=== PATIENT | female | born 1985 | race Caucasian/White ===

== ENCOUNTER 2016-11-27 20:21 | Emergency (ER) | payer OTHER ==
[2016-11-27 20:30] VITALS: BP 128/90; PULSE 68; TEMP 97.5; BMI 34.7
--- NOTE | 2016-11-27 22:30 | PDOC ---
History of Present Illness - General History Source: Patient Exam Limitations: No Limitations - History of Present Illness Initial Comments: 11/27/16 22:32 The patient is a 30 year old female with no significant past medical history who presents to the ED with 6 days of dysuria, hematuria, urgency, and frequency. She also reports some mild back pain. The patient denies fever, chills, cough, SOB, chest pain, and palpitations. The patient denies abdominal pain, nausea, vomiting, and diarrhea. Allergies: NKDA Social History: No alcohol, tobacco, or drug use reported. Past Surgical History: None reported PCP: Dr. Myron Downey <Pattie Kraus - Last Filed: 11/27/16 22:32> - General History Source: Patient <ChristopherAdrien romero - Last Filed: 11/27/16 23:04> - General Chief Complaint: Urinary Problem Stated Complaint: URINARY PROBLEM Time Seen by Provider: 11/27/16 21:48 Past History <Pattie Kraus - Last Filed: 11/27/16 22:32> - Past Medical History Other medical history: denies - Immunization History Immunization Up to Date: Yes - Psycho/Social/Smoking Cessation Hx Anxiety: No Suicidal Ideation: No Smoking Status: No Smoking History: Never smoked Have you smoked in the past 12 months: No Number of Cigarettes Smoked Daily: 0 Hx Alcohol Use: No Drug/Substance Use Hx: No Substance Use Type: None <Adrien Peñaloza - Last Filed: 11/27/16 23:04> - Past Medical History Allergies/Adverse Reactions: Allergies Allergy/AdvReac Type Severity Reaction Status Date / Time No Known Allergies Allergy Verified 11/27/16 20:28 Home Medications: Ambulatory Orders No Home Medications 0 dose .ROUTE UTDICT 05/07/13 Ibuprofen 800 mg PO TID #30 tablet 11/27/16 Phenazopyridine HCl [Pyridium -] 100 mg PO PC #6 tablet 11/27/16 Sulfamethoxazole/Trimethoprim [Bactrim *Ds*] 1 tab PO BID #20 tablet 11/27/16 Review of Systems - Review of Systems Able to Perform ROS?: Yes Comments:: 11/27/16 22:32 CONSTITUTIONAL: Absent: fever, no chills, no fatigue EYES: Absent: visual changes ENT: Absent: ear pain, no sore throat CARDIOVASCULAR: Absent: chest pain, no palpitations RESPIRATORY: Absent: cough, no SOB GI: Absent: abdominal pain, no nausea, no vomiting, no constipation, no diarrhea GENITOURINARY: +dysuria, urgency, frequency, hematuria MUSKULOSKELETAL: +back pain Absent: no arthralgia, no myalgia SKIN: Absent: rash NEURO: Absent: headache <Pattie Kraus - Last Filed: 11/27/16 22:32> *Physical Exam - Vital Signs Last Vital Signs Temp Pulse Resp BP Pulse Ox 97.5 F L 68 18 128/90 99 11/27/16 20:28 11/27/16 20:28 11/27/16 20:28 11/27/16 20:28 11/27/16 20:28 - Physical Exam Comments: 11/27/16 22:33 GENERAL: Well-appearing, well-nourished. No apparent distress. HEENT: Normocephalic, atraumatic. PERRL, EOM intact. CARDIOVASCULAR: Normal S1, S2. Regular rate and rhythm. PULMONARY: Clear to auscultation bilaterally. ABDOMEN: Soft, non-distended, suprapubic tenderness. MUSCULOSKELETAL Negative CVA tenderness EXTREMITIES: Normal ROM in all four extremities. No gross deformities. SKIN: Warm, dry. No rash NEUROLOGICAL: No focal neurological deficits. <Pattie Kraus - Last Filed: 11/27/16 22:32> - Vital Signs Last Vital Signs Temp Pulse Resp BP Pulse Ox 97.5 F L 68 18 128/90 99 11/27/16 20:28 11/27/16 20:28 11/27/16 20:28 11/27/16 20:28 11/27/16 20:28 <Adrien Peñaloza - Last Filed: 11/27/16 23:04> Medical Decision Making - Medical Decision Making 11/27/16 23:04 Dr. Peñaloza: The scribe's documentation has been prepared under my direction and personally reviewed by me in its entirery. I confirm that the note above accurately reflects all work, treatment, procedures, and medical decision making performed by me. Patient found to have urinary tract infection. Patient will be discharged with Abx <Adrien Peñaloza - Last Filed: 11/27/16 23:04> *DC/Admit/Observation/Transfer - Attestations Scribe Attestion: 11/27/16 22:33 Documentation prepared by Pattie Kraus, acting as medical billing clerk for Adrien Peñaloza MD <Pattie Kraus - Last Filed: 11/27/16 22:32> - Discharge Dispostion Admit: No <Adrien Peñaloza - Last Filed: 11/27/16 23:04> Diagnosis at time of Disposition: UTI (urinary tract infection) Qualifiers: Urinary tract infection type: acute cystitis Hematuria presence: with hematuria Qualified Code(s): N30.01 - Acute cystitis with hematuria - Discharge Dispostion Disposition: HOME Condition at time of disposition: Stable - Prescriptions Prescriptions: Sulfamethoxazole/Trimethoprim [Bactrim *Ds*] 1 tab PO BID #20 tablet Ibuprofen 800 mg PO TID #30 tablet Phenazopyridine HCl [Pyridium -] 100 mg PO PC #6 tablet - Referrals Referrals: Myron Downey [Primary Care Provider] - - Patient Instructions Printed Discharge Instructions: DI for Acute Cystitis
[2016-11-27 22:37] LABS: URINE APPEARANCE CLOUDY; URINE BILIRUBIN NEGATIVE (NEGATIVE); URINE COLOR YELLOW; URINE GLUCOSE (UA) NEGATIVE (NEGATIVE); URINE KETONE NEGATIVE (NEGATIVE); URINE NITRITE NEGATIVE (NEGATIVE); URINE UROBILINOGEN NEGATIVE E.U./dl (0.2-1.0)
[2016-11-27 22:48] LABS: URINE BLOOD 1+ (NEGATIVE); URINE LEUK ESTERASE 3+ (NEGATIVE); URINE PROTEIN 1+ (NEGATIVE)
[2016-11-27 22:49] LABS: URINE BACTERIA MANY /hpf (NONE SEEN); URINE MUCUS RARE; URINE RBC 50 /hpf (0-3); URINE WBC 348 /hpf (3-5)
[2016-11-27] MEDS ORDERED: PHENAZOPYRIDINE HCL 100 MG TABLET (FP) PO STA (23:01)
[2016-11-27] MEDS ORDERED: SULFAMETHOXAZOLE/TRIMETHOPRIM 800MG/160MG D.S. TABLET PO ONE (23:01)
[2016-11-27] MEDS ORDERED: IBUPROFEN 400 MG TABLET (FP) PO ONE ×2 (23:02→23:06)
[2016-11-27] MEDS ORDERED: PHENAZOPYRIDINE HCL 100 MG TABLET (FP) ONE (23:05)
[2016-11-27] MEDS ORDERED: SULFAMETHOXAZOLE/TRIMETHOPRIM 800MG/160MG D.S. TABLET ONE (23:05)
== END 2016-11-27 23:28 | disposition home or self-care (01) ==
LOC: JERFT 20:21 → JER 20:21
DX: N30.01 Acute cystitis with hematuria (principal)
CPT/HCPCS: 36415; 81003; 81015; 84703; 87086; 87186; 87491; 87591; 99281-25

== ENCOUNTER 2018-10-02 19:48 | Emergency (ER) | payer BC, OTHER ==
--- NOTE | 2018-10-02 20:19 | PDOC ---
Rapid Medical Evaluation Time Seen by Provider: 10/02/18 20:17 Medical Evaluation: Allergies Allergy/AdvReac Type Severity Reaction Status Date / Time No Known Allergies Allergy Verified 11/27/16 20:28 I have performed a brief in-person evaluation of this patient. The patient presents with a chief complaint of: 2 weeks of vaginal spotting. patient has an IUD. some lower abdominal cramping and low back pain Pertinent physical exam findings: nothing I have ordered the following: UA/hcg The patient will proceed to the ED for further evaluation. Discharge Disposition - Diagnosis Vaginal bleeding - Referrals Referrals: Myron Downey [Primary Care Provider] - - Patient Instructions - Post Discharge Activity
[2018-10-02 20:22] VITALS: BP 118/85; PULSE 71; TEMP 97.8; BMI 87.0
--- NOTE | 2018-10-02 20:45 | PDOC ---
History of Present Illness - General Chief Complaint: Back Pain Stated Complaint: ABD PAIN Time Seen by Provider: 10/02/18 20:17 - History of Present Illness Initial Comments: 10/02/18 21:08 Patient is a 32 year old female with no significant past medical history, presented with vaginal spotting and bilateral low back pain radiating to the lower quadrants/inguinal area for 14 days. Patient had IUD placed 7 years ago, and since then has had irregular heavy menstrual periods with lower abdominal cramping. LMP was mid-July. Patient reported having dark red spotting everytime she would wipe with tissue, but has not needed to wear pads, that started 14 days ago. This was accompanied by bilateral low back pain that would radiate down to the lower abdominal quadrants. Denies fever, chills, nausea, vomiting, chest pain, SOB, palpitations, diarrhea, constipation, dysuria, discharge. Past History - Past Medical History Allergies/Adverse Reactions: Allergies Allergy/AdvReac Type Severity Reaction Status Date / Time No Known Allergies Allergy Verified 11/27/16 20:28 Home Medications: Ambulatory Orders No Home Medications 0 dose .ROUTE UTDICT 05/07/13 Ibuprofen 800 mg PO TID #30 tablet 11/27/16 Phenazopyridine HCl [Pyridium -] 100 mg PO PC #6 tablet 11/27/16 Sulfamethoxazole/Trimethoprim [Bactrim *Ds*] 1 tab PO BID #20 tablet 11/27/16 Lidocaine 5% Patch [Lidoderm Patch -] 1 patch TP DAILY PRN #10 patch 10/03/18 Methocarbamol [Robaxin] 100 mg IJ DAILY PRN #7 ml 10/03/18 Naproxen Sodium [Aleve] 220 mg PO BID PRN #10 tablet 10/03/18 COPD: No - Immunization History Immunization Up to Date: Yes - Suicide/Smoking/Psychosocial Hx Smoking Status: No Smoking History: Never smoked Have you smoked in the past 12 months: No Number of Cigarettes Smoked Daily: 0 Hx Alcohol Use: No Drug/Substance Use Hx: No Substance Use Type: None Review of Systems - Review of Systems Constitutional: No: Chills, Fever, Malaise, Weakness HEENTM: No: Blurred Vision, Nose Congestion, Hearing Loss, Difficulty Swallowing Respiratory: No: Cough, Shortness of Breath Cardiac (ROS): No: Chest Pain, Lightheadedness, Palpitations ABD/GI: Yes: Abdominal cramping. No: Constipated, Diarrhea, Nausea, Poor Appetite, Vomiting : No: Burning, Dysuria, Discharge Musculoskeletal: Yes: Back Pain. No: Joint Swelling, Joint Stiffness Neurological: No: Headache, Numbness, Tingling, Weakness *Physical Exam - Vital Signs Last Vital Signs Temp Pulse Resp BP Pulse Ox 97.8 F 71 20 118/85 100 10/02/18 20:17 10/02/18 20:17 10/02/18 20:17 10/02/18 20:17 10/02/18 20:17 - Physical Exam Comments: 10/02/18 21:45 General: awake, alert, oriented, not in acute distress Head:no signs of head trauma HEENT:PERRLA, EOMI, sclerae anicteric, no nasal discharge, non-erythematous oropharynx, moist mucous membranes Neck:soft, supple, trachea midline without thyroid enlargement Lungs:clear to auscultation bilaterally Heart:regular rate and rhythm, normal S1/S2, no m,r,g Abdomen:soft, +mild tenderness on RLQ, nondistended, NABS, no guarding, no masses Pelvic exam: no bleeding per os, cervix soft, long, closed, whitish discharge noted, no cervical motion tenderness Ext: +2 pulses, no peripheral edema, cyanosis, clubbing Moderate Sedation - Procedure Monitoring Vital Signs: Procedure Monitoring Vital Signs Temperature 97.8 F 10/02/18 20:17 Pulse Rate 71 10/02/18 20:17 Respiratory Rate 20 10/02/18 20:17 Blood Pressure 118/85 10/02/18 20:17 O2 Sat by Pulse Oximetry (%) 100 10/02/18 20:17 Medical Decision Making - Medical Decision Making 10/02/18 21:52 Patient is a 32 year old female presented with vaginal spotting and abdominal cramping for 14 days. DDx include but not limited to nephrolithiasis, ovarian cyst, ectopic , UTI UA, b-hcg TVS *DC/Admit/Observation/Transfer Diagnosis at time of Disposition: Vaginal bleeding - Discharge Dispostion Disposition: HOME Condition at time of disposition: Stable Decision to Admit order: No - Prescriptions Prescriptions: Lidocaine 5% Patch [Lidoderm Patch -] 1 patch TP DAILY PRN #10 patch PRN Reason: Pain Methocarbamol [Robaxin] 100 mg IJ DAILY PRN #7 ml PRN Reason: Pain Naproxen Sodium [Aleve] 220 mg PO BID PRN #10 tablet PRN Reason: Pain - Referrals Referrals: Myron Downey [Primary Care Provider] - Clint Miguel MD [Staff Physician] - - Patient Instructions Printed Discharge Instructions: DI for Vaginal Bleeding Additional Instructions: You were seen because you had vaginal spotting. Tests and imaging were done and were negative for any emergent concerns. You may take the following medications as needed for the pain. 1. Aleve 220mg twice a day as needed. 2. Lidoderm patch, apply on affected area daily as needed. 3. Robaxin once daily. Please follow-up with the visual and stock associate, Dr. Miguel. Call the office to schedule an appointment. Follow-up with your primary care doctor within 2 days. Call 911 or go to the ED if with any worsening vaginal bleeding, weakness, fever , chills, shortness of breath, palpitations, or any new concerns noted. - Post Discharge Activity
[2018-10-02 21:08] LABS: URINE APPEARANCE CLEAR; URINE BILIRUBIN NEGATIVE (<2.0 mg/dL); URINE COLOR YELLOW; URINE GLUCOSE (UA) NEGATIVE (NEGATIVE); URINE KETONE NEGATIVE (NEGATIVE); URINE LEUK ESTERASE NEGATIVE (NEGATIVE); URINE NITRITE NEGATIVE (NEGATIVE); URINE PROTEIN NEGATIVE (NEGATIVE); URINE UROBILINOGEN NEGATIVE mg/dL (0.2-1.0)
[2018-10-02 21:09] LABS: HCG,QUALITATIVE URINE Negative
--- NOTE | 2018-10-02 21:23 | PDOC ---
Attending Attestation - HPI HPI: 10/03/18 00:29 The patient is a 32-year-old female with no past medical history presents to the emergency department with vaginal spotting and lower back pain. The patient presents with 14 days of vaginal spotting, thats noted with wiping. The patient reports she had an IUD placed about 7 years ago, following she gets her menses every 3 months, with heavy bleeding for 8-10 days. The patient reports an additional concern of back pain that radiates to the inguinal region, thats chronic in nature. The patient reports the pain been constant since the of her daughter. The patient states she was in labor 48 hours, and the baby weighed 10 pounds. The patient reports the pains been present since then. The patient reports the pain is worse on rainy days, standing and moving, with relief noted at rest. Denies blood in the urine, fall, injury or trauma to the back, fever, chills, nausea, chest pain, dysuria, hematuria. Allergies: NKA - Physicial Exam PE: 10/03/18 00:27 GENERAL: The patient is in no acute distress. LUNGS: Breath sounds equal, clear to auscultation bilaterally. No wheezes, and no crackles. HEART:Regular rate and rhythm, normal S1 and S2 without murmur, rub or gallop. ABDOMEN: Soft, nontender. No guarding, no rebound. No masses palpable. EXTREMITIES:Normal range of motion, no edema. No clubbing or cyanosis. No erythema, or tenderness. MUSCULOSKELETAL: +lower lumbar pain pain with movement of the legs. non-tender to palpation, no CVA tenderness - Medical Decision Making 10/03/18 00:27 Documentation prepared by Ya Che, acting as rn medical inpatient services for Ailyn Tejada MD. <Ya Che - Last Filed: 10/03/18 00:29> - Resident Resident Name: Ronna Stafford - ED Attending Attestation I have performed the following: I have examined & evaluated the patient, The case was reviewed & discussed with the resident, I agree w/resident's findings & plan, Exceptions are as noted - Medical Decision Making 10/03/18 19:42 Ms Knight is a 32 yo F who present so the ER with a complaint of spotting for the past 14 days and lower back pain which is present intermittently No nausea, vomiting or diarrhea No fevers or chills No IVDU, no trauma (these symptoms have been present for several years) US demonstrated IUD in the appropriate position, no ruptured cysts Will d/c to home pt encouraged to follow up with 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
[2018-10-02] MEDS ORDERED: IBUPROFEN 600 MG TABLET (FP) PO ONE ×2 (22:44→22:54)
[2018-10-02] MEDS ORDERED: METHOCARBAMOL 500 MG TABLET PO ONE (22:44)
[2018-10-02] MEDS ORDERED: METHOCARBAMOL 500 MG TABLET ONE (22:53)
== END 2018-10-03 01:16 | disposition home or self-care (01) ==
LOC: JER 19:48
DX: N93.9 Abnormal uterine and vaginal bleeding, unspecified (principal)
CPT/HCPCS: 76830-TC; 81003; 84703; 87086; 99281-25

== ENCOUNTER 2020-05-02 20:43 | Emergency (ER) | payer BC ==
--- NOTE | 2020-05-02 21:00 | PDOC ---
Rapid Medical Evaluation Chief Complaint: Pain Time Seen by Provider: 05/02/20 20:54 Medical Evaluation: Allergies Allergy/AdvReac Type Severity Reaction Status Date / Time No Known Allergies Allergy Verified 11/27/16 20:28 05/02/20 20:56 34 year old + urine now with vaginal spotting. LMP: 04/25/20. denies abdominal pain Last Vital Signs Temp Pulse Resp BP Pulse Ox 98 F 74 18 118/69 98 05/02/20 20:54 05/02/20 20:54 05/02/20 20:54 05/02/20 20:54 05/02/20 20:54 PE; patient alert ox3. A: vaginal bleeding in early P: Labs TVUS UA 05/02/20 21:00 Discharge Disposition - Diagnosis Vaginal bleeding - Referrals - Patient Instructions - Post Discharge Activity
[2020-05-02 21:01] VITALS: BP 118/69; PULSE 74; TEMP 98; BMI 37.1
[2020-05-02 21:42] LABS: BASO % 0.8 % (0-2.0); EOS % 3.9 % (0-4.5); HEMATOCRIT 37.7 % (32.4-45.2); HEMOGLOBIN 12.5 GM/dL (10.7-15.3); LYMPH % 27.6 % (8-40); MCH 28.7 pg (25.7-33.7); MCHC 33.1 g/dl (32.0-36.0); MEAN CELL VOLUME 86.7 fl (80-96); MEAN PLT VOLUME 8.8 fl (7.5-11.1); MONO % 6.1 % (3.8-10.2); NEUT % 61.6 % (42.8-82.8); PLATELET COUNT 231 K/MM3 (134-434); RBC 4.35 M/mm3 (3.60-5.2); RDW 13.8 % (11.6-15.6); WHITE BLOOD COUNT 10.1 K/mm3 (4.0-10.0)
[2020-05-02 21:44] LABS: EPI CELLS >36 /uL (0-25.1); HYALINE CASTS 3 /uL (0-3.1); PH,URINE 6.5 (5.0-8.0); URINE APPEARANCE CLOUDY; URINE BACTERIA 639 /uL (0-1359); URINE BILIRUBIN NEGATIVE (NEGATIVE); URINE COLOR ORANGE; URINE GLUCOSE (UA) NEGATIVE (NEGATIVE); URINE KETONE NEGATIVE (NEGATIVE); URINE LEUK ESTERASE TRACE (NEGATIVE); URINE NITRITE NEGATIVE (NEGATIVE); URINE PROTEIN 2+ (NEGATIVE); URINE WBC 32 /uL (0-25.8)
--- NOTE | 2020-05-02 23:17 | PDOC ---
History of Present Illness - General Chief Complaint: Pain Stated Complaint: ABD PAIN Time Seen by Provider: 05/02/20 20:54 History Source: Patient - History of Present Illness Initial Comments: 05/02/20 23:14 34-year-old female complaining of vaginal spotting since April 20. Today had a positive urine test. Patient was sent from urgent care for evaluation. Patient reports no pelvic pain, fever/chills, no urinary symptoms 05/02/20 23:16 LMP: 04/20/20 IUD removed 2 months ago Past History - Medical History Allergies/Adverse Reactions: Allergies Allergy/AdvReac Type Severity Reaction Status Date / Time No Known Allergies Allergy Verified 05/02/20 21:01 Home Medications: Ambulatory Orders No Home Medications 0 dose .ROUTE UTDICT 05/07/13 Ibuprofen 800 mg PO TID #30 tablet 11/27/16 Phenazopyridine HCl [Pyridium -] 100 mg PO PC #6 tablet 11/27/16 Sulfamethoxazole/Trimethoprim [Bactrim *Ds*] 1 tab PO BID #20 tablet 11/27/16 Lidocaine 5% Patch [Lidoderm Patch -] 1 patch TP DAILY PRN #10 patch 10/03/18 Methocarbamol [Robaxin] 100 mg IJ DAILY PRN #7 ml 10/03/18 Naproxen Sodium [Aleve] 220 mg PO BID PRN #10 tablet 10/03/18 COPD: No - Immunization History Immunization Up to Date: Yes - Psycho-Social/Smoking History Smoking Status: No Smoking History: Never smoked Have you smoked in the past 12 months: No Number of Cigarettes Smoked Daily: 0 - Substance Abuse Hx (Audit-C & DAST Scrn) How often the patient has a drink containing alcohol: Never Score: In Men: 4 or > Positive; In Women: 3 or > Positive: 0 Screen Result (Pos requires Nsg. Audit-10AR): Negative Review of Systems - Review of Systems Able to Perform ROS?: Yes Is the patient limited [place]an proficient: No : Yes: Other (vaginal bleeding). No: Symptoms Reported, See HPI, Burning, Dysuria, Discharge, Frequency, Flank Pain, Hematuria, Incontinence, Pain, Urgency, Testicular Mass, Testicular Swelling, Lesions, Testicular Pain Musculoskeletal: No: Symptoms Reported, See HPI, Back Pain, Gout, Joint Pain, Joint Swelling, Muscle Pain, Muscle Weakness, Neck Pain, Joint Stiffness, Other *Physical Exam - Vital Signs Last Vital Signs Temp Pulse Resp BP Pulse Ox 98 F 74 18 118/69 98 05/02/20 20:54 05/02/20 20:54 05/02/20 20:54 05/02/20 20:54 05/02/20 20:54 - Physical Exam General Appearance: Yes: Appropriately Dressed Cardiovascular: positive: Regular Rhythm, Regular Rate Female Pelvic Exam: positive: normal external exam, cervical os closed, normal adnexa, vaginal bleeding (in vault) Gastrointestinal/Abdominal: positive: Normal Bowel Sounds, Soft. negative: Tender Integumentary: positive: Normal Color, Dry, Warm Neurologic: positive: Fully Oriented, Normal Mood/Affect, Normal Response, Motor Strength 02/21 ED Treatment Course - LABORATORY CBC & Chemistry Diagram: 05/02/20 21:08 - ADDITIONAL ORDERS Additional order review: Laboratory Results 05/02/20 05/02/20 05/02/20 21:08 21:08 21:08 Beta HCG, Quant 158.1 Urine Color [place] Urine Appearance Cloudy Urine pH 6.5 Ur Specific [place] 1.034 Urine Protein 2+ H Urine Glucose (UA) Negative Urine Ketones Negative Urine Blood 3+ H Urine Nitrite Negative Urine Bilirubin Negative Urine Urobilinogen 1.0 Ur Leukocyte Esterase Trace Urine WBC (Auto) 32 Urine RBC (Auto) 180.0 Urine Casts (Auto) 3 U Epithel Cells (Auto) >36 Urine Bacteria (Auto) 639 Urine Yeast (Auto) None Blood Type O POSITIVE Antibody Screen Negative 05/02/20 21:08 RBC 4.35 MCV 86.7 MCHC 33.1 RDW 13.8 MPV 8.8 Neutrophils % 61.6 Lymphocytes % 27.6 D Monocytes % 6.1 Eosinophils % 3.9 D Basophils % 0.8 - RADIOLOGY Radiology Studies Ordered: Category Date Time Status TRANSVAGINAL US PREG [US] Stat Ultrasound 05/02/20 20:59 Completed ED Progress Note - Progress Note Progress Note: vaginal bleeding in P: cbc beta hcg type and screen TVUS: no IUP. Discharge - Discharge Information Problems reviewed: Yes Clinical Impression/Diagnosis: Vaginal bleeding, Vaginal bleeding affecting early Disposition: HOME - Follow up/Referral Referrals: Myron Downey [Primary Care Provider] - Clint Miguel MD [Staff Physician] - - Patient Discharge Instructions Patient Printed Discharge Instructions: DI for Vaginal Bleeding Additional Instructions: Follow-up with gynecology as soon as possible. Return to the ER if you are soaking 2 pads per hour, severe abdominal pain, or worsening symptoms. - Post Discharge Activity Work/Back to School Note: Back to Work
== END 2020-05-03 00:15 | disposition home or self-care (01) ==
LOC: JER 20:43
DX: O20.9 Hemorrhage in early pregnancy, unspecified (principal); Z3A.00 Weeks of gestation of pregnancy not specified
CPT/HCPCS: 36415; 76817-TC; 81003; 84702; 85025; 86850; 86900; 86901; 99284-25

== ENCOUNTER 2020-05-11 09:29 | Emergency (ER) | payer BC ==
[2020-05-11 09:36] VITALS: BMI 37.1
[2020-05-11 10:10] LABS: BASO % 0.7 % (0-2.0); EOS % 3.6 % (0-4.5); HEMATOCRIT 37.9 % (32.4-45.2); HEMOGLOBIN 12.5 GM/dL (10.7-15.3); LYMPH % 23.2 % (8-40); MCH 28.5 pg (25.7-33.7); MCHC 32.9 g/dl (32.0-36.0); MEAN CELL VOLUME 86.7 fl (80-96); MEAN PLT VOLUME 8.7 fl (7.5-11.1); MONO % 6.5 % (3.8-10.2); PLATELET COUNT 230 K/MM3 (134-434); RBC 4.38 M/mm3 (3.60-5.2); RDW 14.2 % (11.6-15.6)
[2020-05-11 10:21] LABS: INR 0.94 (0.83-1.09); PROTHROMBIN TIME (PATIENT) 11.1 SEC (9.7-13.0)
[2020-05-11 10:28] LABS: EPI CELLS 8 /uL (0-25.1); HYALINE CASTS 0 /uL (0-3.1); PH,URINE 6.5 (5.0-8.0); URINE APPEARANCE CLEAR; URINE BACTERIA 191 /uL (0-1359); URINE BILIRUBIN NEGATIVE (NEGATIVE); URINE COLOR YELLOW; URINE GLUCOSE (UA) NEGATIVE (NEGATIVE); URINE KETONE NEGATIVE (NEGATIVE); URINE LEUK ESTERASE NEGATIVE (NEGATIVE); URINE NITRITE NEGATIVE (NEGATIVE); URINE PROTEIN NEGATIVE (NEGATIVE); URINE RBC 16 /uL (0-23.9); URINE UROBILINOGEN 0.2 mg/dL (0.2-1.0); URINE WBC 13 /uL (0-25.8)
--- NOTE | 2020-05-11 10:46 | PDOC ---
History of Present Illness - General History Source: Patient Exam Limitations: No Limitations <Melissa Cutler - Last Filed: 05/11/20 19:50> <Brady Cotton - Last Filed: 05/12/20 19:15> - General Chief Complaint: ,Possible Stated Complaint: ETOPIC Time Seen by Provider: 05/11/20 09:40 Past History - Travel History Traveled outside of the country in the last 30 days: No Close contact w/someone who was outside of country & ill: No - Medical History COPD: No - Reproductive History Is Patient Now?: Yes - Immunization History Immunization Up to Date: Yes - Psycho-Social/Smoking History Smoking Status: No Smoking History: Never smoked Have you smoked in the past 12 months: No Number of Cigarettes Smoked Daily: 0 Information on smoking cessation initiated: No - Substance Abuse Hx (Audit-C & DAST Scrn) How often the patient has a drink containing alcohol: Never Score: In Men: 4 or > Positive; In Women: 3 or > Positive: 0 Screen Result (Pos requires Nsg. Audit-10AR): Negative In the last yr the pt used illegal drug/Rx for NonMed reason: No Score: Yes response is considered Positive: 0 Screen Result (Positive result requires Nsg. DAST-10): Negative <Melissa Cutler - Last Filed: 05/11/20 19:50> <Brady Cotton - Last Filed: 05/12/20 19:15> - Medical History Allergies/Adverse Reactions: Allergies Allergy/AdvReac Type Severity Reaction Status Date / Time No Known Allergies Allergy Verified 05/02/20 21:01 Home Medications: Ambulatory Orders NK [No Known Home Medication] 05/11/20 Review of Systems - Review of Systems Able to Perform ROS?: Yes Comments:: 05/11/20 10:55 CONSTITUTIONAL: Absent: fever, chills, diaphoresis, generalized weakness, malaise, loss of appetite HEENT: Absent: rhinorrhea, nasal congestion, throat pain, throat swelling, difficulty swallowing, mouth swelling, ear pain, eye pain, visual Changes CARDIOVASCULAR: Absent: chest pain, loss of consciousness, palpitations, irregular heart rate, peripheral edema RESPIRATORY: Absent: cough, shortness of breath, dyspnea with exertion, orthopnea, wheezing, stridor, hemoptysis GASTROINTESTINAL: Absent: abdominal pain, abdominal distension, nausea, vomiting, diarrhea, constipation, melena, hematochezia GENITOURINARY: Present: Bilateral adnexal pain absent: dysuria, frequency, urgency, hesitancy, hematuria, flank pain, genital pain MUSCULOSKELETAL: Absent: myalgia, arthralgia, joint swelling SKIN: Absent: rash, itching, pallor HEMATOLOGIC/IMMUNOLOGIC: Absent: easy bleeding, easy bruising, lymphadenopathy, frequent infections ENDOCRINE: Absent: unexplained weight gain, unexplained weight loss, heat intolerance, cold intolerance NEUROLOGIC: Absent: headache, focal weakness or paresthesias, dizziness, unsteady gait, seizure, mental status changes, bladder or bowel incontinence PSYCHIATRIC: Absent: anxiety, depression, suicidal or homicidal ideation, hallucinations. Is the patient limited Syriac proficient: No <Melissa Cutler - Last Filed: 05/11/20 19:50> *Physical Exam - Vital Signs Last Vital Signs Temp Pulse Resp BP Pulse Ox 98.2 F 63 16 118/50 L 99 05/11/20 09:33 05/11/20 09:33 05/11/20 09:33 05/11/20 09:33 05/11/20 09:33 - Physical Exam 05/11/20 10:56 GENERAL: Well developed, well nourished. Awake and alert. No acute distress. HEENT: Normocephalic, atraumatic. PERRLA, EOMI. No conjunctival pallor. Sclera are non- icteric. Moist mucous membranes. Oropharynx is clear. NECK: Supple. Full ROM. No JVD. Carotid pulses 2+ and symmetric, without bruits. No thyromegaly. No lymphadenopathy. CARDIOVASCULAR: Regular rate and rhythm. No murmurs, rubs, or gallops. Distal pulses are 2+ and symmetric. PULMONARY: No evidence of respiratory distress. Lungs clear to auscultation bilaterally. No wheezing, rales or rhonchi. ABDOMINAL: Tenderness palpation of the left adnexal area more left than right. Soft. Non- tender. Non-distended. No rebound or guarding. No organomegaly. Normoactive bowel sounds. Pelvic: External genitalia normal without lesions. Vaginal vault with scant blood. Cervix is long and closed. No cervical motion tenderness. Uterus is nontender and normal in size. Adnexa are nontender and without masses. MUSCULOSKELETAL Normal range of motion at all joints. No bony deformities or tenderness. No CVA tenderness. EXTREMITIES: No cyanosis. No clubbing. No edema. No calf tenderness. SKIN: Warm and dry. Normal capillary refill. No rashes. No jaundice. NEUROLOGICAL: Alert, awake, appropriate. Cranial nerves 2-12 intact. No deficits to light touch and temperature in face, upper extremities and lower extremities. No motor deficits in the in face, upper extremities and lower extremities. Normoreflexic in the upper and lower extremities. Normal speech. Toes are down-going bilaterally. Gait is normal without ataxia. PSYCHIATRIC: Cooperative. Good eye contact. Appropriate mood and affect. <Melissa Cutler - Last Filed: 05/11/20 19:50> - Vital Signs Last Vital Signs Temp Pulse Resp BP Pulse Ox 98.4 F 62 18 110/50 L 100 05/11/20 15:18 05/11/20 15:18 05/11/20 15:18 05/11/20 15:18 05/11/20 15:18 <Brady Cotton - Last Filed: 05/12/20 19:15> ED Treatment Course - LABORATORY CBC & Chemistry Diagram: 05/11/20 09:45 05/11/20 09:45 - ADDITIONAL ORDERS Additional order review: Laboratory Results 05/11/20 05/11/20 10:00 09:45 PT with INR 11.10 INR 0.94 Urine Color Yellow Urine Appearance Clear Urine pH 6.5 Ur Specific Hurley 1.012 Urine Protein Negative Urine Glucose (UA) Negative Urine Ketones Negative Urine Blood 3+ H Urine Nitrite Negative Urine Bilirubin Negative Urine Urobilinogen 0.2 Ur Leukocyte Esterase Negative Urine WBC (Auto) 13 Urine RBC (Auto) 16 Urine Casts (Auto) 0 U Epithel Cells (Auto) 8 Urine Bacteria (Auto) 191 05/11/20 09:45 RBC 4.38 MCV 86.7 MCHC 32.9 RDW 14.2 MPV 8.7 Neutrophils % 66.0 Lymphocytes % 23.2 Monocytes % 6.5 Eosinophils % 3.6 Basophils % 0.7 - RADIOLOGY Radiology Studies Ordered: Category Date Time Status TRANSVAGINAL US PREG [US] Stat Ultrasound 05/11/20 09:59 Ordered <Melissa Cutler - Last Filed: 05/11/20 19:50> - LABORATORY CBC & Chemistry Diagram: 05/11/20 09:45 05/11/20 09:45 - ADDITIONAL ORDERS Additional order review: 05/11/20 10:00 Urine Culture - Final Urine - Urine Clean Catch NO GROWTH OBTAINED 05/11/20 09:45 RBC 4.38 MCV 86.7 MCHC 32.9 RDW 14.2 MPV 8.7 Neutrophils % 66.0 Lymphocytes % 23.2 Monocytes % 6.5 Eosinophils % 3.6 Basophils % 0.7 - Medications Given in the ED: ED Medications Discontinued Medications Generic Name Dose Route Start Last Admin Trade Name Freelva PRN Reason Stop Dose Admin Methotrexate Sodium 96 mg 05/11/20 14:49 05/11/20 16:05 Mexate Injection - 50 mg/m2 (96 mg) 05/11/20 14:50 96 mg IM Administration ONCE ONE Methotrexate Sodium 96 mg 05/11/20 15:15 05/11/20 16:06 Mexate Injection - 50 mg/m2 (96 mg) 05/11/20 15:16 Not Given IM ONCE ONE <Brady Cotton - Last Filed: 05/12/20 19:15> Medical Decision Making - Medical Decision Making 05/11/20 12:06 The patient is a 34-year-old female G3, P2, LMP March 13, 2020, presents to the ER today for repeat ultrasound and beta-hCG testing. She was seen here 1 week ago with an hCG of 150 and no fetus identified on ultrasound. She followed up with her [facility] Dr. Owens, 2 days ago and states she had a ultrasound in office which still showed no IUP. She was told to come to the ER today for repeat beta-hCG and ultrasound to determine if she has an ectopic . She states that she has more pain on the left than the right. She does note she has 2 cysts on the right side. Denies vaginal bleeding, nausea, vomiting, dysuria, hematuria. A/P: Possible ectopic Pelvic exam shows a closed office with scant blood in the vaginal canal. No adnexal tenderness on internal exam. Patient has adnexal tenderness on palpation. Beta hCG and transvaginal ultrasound reordered as well as basic labs. Will discuss with Dr. Owens once results come back, methotrexate versus surgical procedure. Patient is aware of treatment plan 05/11/20 16:50 Less than 1 cm of free fluid around the pelvic cul-de-sac. No obvious ectopic at this time. Beta-hCG only risen to 260 in 1 week. Unlikely a viable . Case discussed with Dr. Owens, given no obvious IUP, and small amount of free fluid, recommends treating with methotrexate for ectopic . Methotrexate administered in the ER at this time. Patient understands she needs to follow-up with Dr. Owens. on Friday. Strict return precautions given and discussed what may happen with a worsening ectopic including . Advise should the patient have any worsening symptoms to return immediately to the ER. I discussed the physical exam findings, ancillary test results and final diagnoses with the patient. I answered all of the patient's questions. The patient was satisfied with the care received and felt comfortable with the discharge plan and treatment plan. The Patient agrees to follow up with the primary care physician/specialist within 24-72 hours. Return precautions were given. <Melissa Cutler - Last Filed: 05/11/20 19:50> - Medical Decision Making 05/12/20 19:15 I reviewed the case of the mid-level practitioner and was available for co nsultation while in the emergency department <Brady Cotton - Last Filed: 05/12/20 19:15> Discharge - Discharge Information Problems reviewed: Yes - Admission No <Melissa Cutler - Last Filed: 05/11/20 19:50> <Brady Cotton - Last Filed: 05/12/20 19:15> - Discharge Information Clinical Impression/Diagnosis: Encounter for assessment for suspected ectopic Abdominal pain Qualifiers: Abdominal location: lower abdomen, unspecified Qualified Code(s): R10.30 - Lower abdominal pain, unspecified Condition: Stable Disposition: HOME - Follow up/Referral Referrals: Myron Downey [Primary Care Provider] - Clint Miguel MD [Staff Physician] - - Patient Discharge Instructions Patient Printed Discharge Instructions: DI for Ectopic Additional Instructions: You were seen and evaluated for your potential ectopic today. Your beta hCG was 268. You were given methotrexate to treat the ectopic . You may experience some vaginal bleeding. You should not soak more than 1 pad an hour. If you have increasing pain, lightheadedness, vomiting please return to the ER immediately for reevaluation of possible ectopic as it may have ruptured. Please follow-up with Dr. Owens on Friday as discussed. Return to the ER for any new or worsening symptoms. - Post Discharge Activity
[2020-05-11 10:47] LABS: ALBUMIN 3.4 g/dl (3.4-5.0); BILIRUBIN,TOTAL 0.4 mg/dL (0.2-1); BLOOD UREA NITROGEN 10.3 mg/dL (7-18); CALCIUM 8.9 mg/dL (8.5-10.1); CREATININE 0.7 mg/dL (0.55-1.3); POTASSIUM 4.6 mmol/L (3.5-5.1); TOT PROT 7.4 g/dl (6.4-8.2)
[2020-05-11] MEDS ORDERED: METHOTREXATE SODIUM/PF 25 MG/ML VIAL IM ONE ×2 (14:49→15:15)
[2020-05-11 15:20] VITALS: BP 110/50; PULSE 62; TEMP 98.4
== END 2020-05-11 16:29 | disposition home or self-care (01) ==
LOC: JER 09:29
DX: R10.30 Lower abdominal pain, unspecified (principal)
CPT/HCPCS: 36415; 76817-TC; 80053; 81003; 84702; 85025; 85610; 86850; 86900; 86901; 87086; 99285-25; J9260

== ENCOUNTER 2020-05-18 19:18 | Emergency (ER) | payer BC ==
--- NOTE | 2020-05-18 19:26 | PDOC ---
Rapid Medical Evaluation Time Seen by Provider: 05/18/20 19:23 Medical Evaluation: Allergies Allergy/AdvReac Type Severity Reaction Status Date / Time No Known Allergies Allergy Verified 05/02/20 21:01 05/18/20 19:23 34 year old female A1 WITH CURRENT ETOPIC sent by Dr Ramon for methotrexate? and repeat beta hcg No vaginal bleeding or discharge PE: Deferred Plan: Beta CBC CMP Consult Pt to precede to ED for further eval
[2020-05-18 19:35] VITALS: BMI 36.9
--- NOTE | 2020-05-18 20:44 | PDOC ---
History of Present Illness - General Chief Complaint: BHCG Stated Complaint: SENT BY PCP/ECTOPIC PREG Time Seen by Provider: 05/18/20 19:23 History Source: Patient Exam Limitations: No Limitations - History of Present Illness Initial Comments: 05/18/20 20:44 HPI: This is a 34 y/o female sent in by Dr. Jones for BHCG and methotrexate for a 4 week left sided ectopic . She received one dose of methotrexate last and went into Dr. Serra office for repeat HCG yesterday which was still elevated. She admits to heavy vaginal bleeding which began last after her first Methotrexate injection, and stopped this past Friday. She also endorses mild cramping, some nausea, decreased appetite, and a mild headache. ROS: GENERAL/CONSTITUTIONAL: No fever/chills. No weakness. CARDIOVASCULAR: No chest pain or shortness of breath. RESPIRATORY: No cough, wheezing, or hemoptysis. GASTROINTESTINAL: Mild nausea, no vomiting. Mild abdominal cramping. GENITOURINARY: No dysuria, frequency MUSCULOSKELETAL: No joint or muscle swelling or pain. No neck or back pain. SKIN: No rash NEUROLOGIC: Yes headache No loss of consciousness HEMATOLOGIC/LYMPHATIC: No anemia, easy bleeding PMH: Denied PSx: Social Hx: Denied Meds: Denied Allergies: Denied PE: GENERAL: Awake, alert, and fully oriented, in no acute distress. Sitting up in chair conversing normally. HEAD: No signs of trauma EYES: PERRL, EOMI NECK: Normal ROM, supple LUNGS: Breath sounds equal, clear to auscultation bilaterally. No wheezes, and no crackles HEART: Regular rate and rhythm, normal S1 and S2, no murmurs, rubs or gallops ABDOMEN: Soft, nontender, normoactive bowel sounds. No guarding, no rebound. No masses EXTREMITIES: Normal range of motion, no edema. NEUROLOGICAL: Cranial nerves II through XII grossly intact. Normal speech, normal gait MDM: This is a 34 y/o female sent in by Dr. Jones for BHCG and methotrexate for a 4 week left sided ectopic . She received one dose of methotrexate last and went into Dr. Serra office for repeat HCG yesterday which was still elevated. - Pt reported no vaginal bleeding since Friday Beta HCG Beta HCG, Quant 181.3 mIU/ml 05/18/20 20:47 - Dr. Jones notified. He would like her to receive second dose of methotrexate. - Patient ok to d/c and follow-up with Dr. Jones on Friday. 05/19/20 04:52 Past History - Medical History Allergies/Adverse Reactions: Allergies Allergy/AdvReac Type Severity Reaction Status Date / Time No Known Allergies Allergy Verified 05/02/20 21:01 Home Medications: Ambulatory Orders NK [No Known Home Medication] 05/11/20 COPD: No - Immunization History Immunization Up to Date: Yes - Psycho-Social/Smoking History Smoking Status: No Smoking History: Never smoked Have you smoked in the past 12 months: No Number of Cigarettes Smoked Daily: 0 - Substance Abuse Hx (Audit-C & DAST Scrn) How often the patient has a drink containing alcohol: Never Score: In Men: 4 or > Positive; In Women: 3 or > Positive: 0 Screen Result (Pos requires Nsg. Audit-10AR): Negative In the last yr the pt used illegal drug/Rx for NonMed reason: No Score: Yes response is considered Positive: 0 Screen Result (Positive result requires Nsg. DAST-10): Negative *Physical Exam - Vital Signs Last Vital Signs Temp Pulse Resp BP Pulse Ox 98.5 F 84 19 106/58 L 97 05/18/20 19:23 05/18/20 19:23 05/18/20 19:23 05/18/20 19:23 05/18/20 19:23 Discharge - Discharge Information Problems reviewed: Yes Clinical Impression/Diagnosis: Ectopic Qualifiers: Location of ectopic : tubal Intrauterine status: unspecified Laterality: left Qualified Code(s): O00.102 - Left tubal without intrauterine Condition: Stable Disposition: HOME - Follow up/Referral Referrals: Myron Downey [Primary Care Provider] - Clint Miguel MD [Staff Physician] - - Patient Discharge Instructions Patient Printed Discharge Instructions: DI for Ectopic , Methotrexate Injection Additional Instructions: You received an IM dose of methotrexate tonight in the ER. Your beta hcg was [address] Miguel wants to see you on Friday in the office for a follow up visit. Please return to the ER with any further concerns or complaints. Please follow up with [facility] STAFFER on Friday as discussed. If you are bleeding more than 2 pads an hour for more than 2 hours please return to the ER immediately. - Post Discharge Activity
--- NOTE | 2020-05-18 20:57 | PDOC ---
Documentation entered by Ani Nichole SCRIBE, acting as scribe for Susanne Chavez DO. Susanne Chavez DO: This documentation has been prepared by the Dionisio walters Brenda, SCRIBE, under my direction and personally reviewed by me in its entirety. I confirm that the documentation accurately reflects all work, treatment, procedures, and medical decision making performed by me. Attending Attestation - Resident Resident Name: Vicki Krishnamurthy - ED Attending Attestation I have performed the following: I have examined & evaluated the patient, The case was reviewed & discussed with the resident, I agree w/resident's findings & plan, Exceptions are as noted - HPI HPI: 05/18/20 20:24 The patient is a year old female with no significant PMH who presents to the emergency department sent by Dr. Miguel for a repeat BHCG and methotrexate due to vaginal bleeding s/p IUD removal a few months ago. The patient denies chest pain, shortness of breath, headache and dizziness. Denies fever, chills, nausea, vomiting, diarrhea and constipation. Denies dysuria, frequency, urgency and hematuria. Allergies: NKA Social history: No reported hx of tobacco use, alcohol use or illicit drug use. OBGYN: Dr. Miguel - Physicial Exam PE: 05/18/20 20:25 GENERAL: Awake, alert, and fully oriented, in no acute distress NECK: Normal ROM, supple, no lymphadenopathy, JVD, or masses LUNGS: Breath sounds equal, clear to auscultation bilaterally. No wheezes, and no crackles HEART: Regular rate and rhythm, normal S1 and S2, no murmurs, rubs or gallops ABDOMEN: Soft, nontender, normoactive bowel sounds. No guarding, no rebound. No masses EXTREMITIES: Normal range of motion, no edema. No clubbing or cyanosis. No cords, erythema, or tenderness NEUROLOGICAL: Cranial nerves II through XII grossly intact. Normal speech, normal gait SKIN: Warm, Dry, normal turgor, no rashes or lesions noted. - Medical Decision Making 05/18/20 20:54 a/p: 34yo female with known ectopic preg received methotrexate last -states she bled over the weekend but stopped bleeding friday -denies bleeding today -pt states IUD removed in February and has had spotting since -beta was 267 last week -sent by Dr. Daniel for a repeat beta today and repeat methotrexate dosing -pt O+ on prior type and screens -will send beta hcg and then methotrexate 05/18/20 21:50 beta 181 05/18/20 21:[address] Daniel who states even with beta 181 he recommends methotrexate dosing again for ectopic preg and follow up with him Friday Discharge - Discharge Information Problems reviewed: Yes Clinical Impression/Diagnosis: Ectopic Condition: Stable Disposition: HOME - Admission No - Follow up/Referral Referrals: Myron Downey [Primary Care Provider] - Clint Miguel MD [Staff Physician] - - Patient Discharge Instructions Patient Printed Discharge Instructions: Methotrexate Injection, DI for Ectopic Additional Instructions: You received an IM dose of methotrexate tonight in the ER. Your beta hcg was [address] Miguel wants to see you on Friday in the office for a follow up visit. Please return to the ER with any further concerns or complaints. Please follow up with SECURITY ATTENDANT on Friday as discussed. If you are bleeding more than 2 pads an hour for more than 2 hours please return to the ER immediately. - Post Discharge Activity
[2020-05-18] MEDS ORDERED: METHOTREXATE SODIUM/PF 25 MG/ML VIAL IM ONE (21:51)
[2020-05-18 22:54] VITALS: BP 110/62; PULSE 81; TEMP 98.3
== END 2020-05-18 22:50 | disposition home or self-care (01) ==
LOC: JER 19:18
PROC: 3E0234Z Introduction of Serum, Toxoid and Vaccine into Muscle, Percutaneous Approach (ICD-10-PCS; principal; 2020-05-18)
DX: O00.90 Unspecified ectopic pregnancy without intrauterine pregnancy (principal)
CPT/HCPCS: 36415; 84702; 99284-25; J9260

== ENCOUNTER 2022-06-08 14:07 | Emergency (ER) | payer BC ==
[2022-06-08 14:14] VITALS: BP 102/51; PULSE 80; RESP 18; TEMP 98; BMI 37.6
[2022-06-08 15:40] LABS: BASO % 0.6 % (0-2.0); HEMATOCRIT 40.3 % (32.4-45.2); HEMOGLOBIN 13.7 GM/dL (10.7-15.3); LYMPH % 20.8 % (8-40); MCH 30.7 pg (25.7-33.7); MCHC 34.1 g/dl (32.0-36.0); MEAN CELL VOLUME 90.2 fl (80-96); MEAN PLT VOLUME 8.3 fl (7.5-11.1); MONO % 6.2 % (3.8-10.2); NEUT % 70.4 % (42.8-82.8); PLATELET COUNT 235 10^3/uL (134-434); RBC 4.47 M/mm3 (3.60-5.2); RDW 13.4 % (11.6-15.6); WHITE BLOOD COUNT 7.1 K/mm3 (4.0-10.0)
[2022-06-08 15:46] LABS: CALCIUM 8.6 mg/dL (8.5-10.1)
[2022-06-08 15:47] LABS: ALBUMIN 3.2 g/dl (3.4-5.0)
[2022-06-08 15:49] LABS: CREATININE 0.7 mg/dL (0.55-1.3)
[2022-06-08 15:51] LABS: BILIRUBIN,TOTAL 0.4 mg/dL (0.2-1); TOT PROT 6.8 g/dl (6.4-8.2)
[2022-06-08 17:21] LABS: HCG,QUALITATIVE URINE Positive
[2022-06-08 17:25] LABS: EPI CELLS >36 /uL (0-25.1); HYALINE CASTS 2 /uL (0-3.1); URINE APPEARANCE CLOUDY; URINE BACTERIA >9,000 /uL (0-1359); URINE BILIRUBIN NEGATIVE (NEGATIVE); URINE COLOR YELLOW; URINE GLUCOSE (UA) NEGATIVE (NEGATIVE); URINE KETONE TRACE (NEGATIVE); URINE LEUK ESTERASE TRACE (NEGATIVE); URINE NITRITE POSITIVE (NEGATIVE); URINE PROTEIN NEGATIVE (NEGATIVE); URINE RBC 6 /uL (0-23.9); URINE WBC 38 /uL (0-25.8)
[2022-06-08] MEDS ORDERED: CEPHALEXIN MONOHYDRATE 500 MG CAPSULE (UD) PO ONE (18:56)
[2022-06-08] MEDS ORDERED: CEPHALEXIN MONOHYDRATE 500 MG CAPSULE (UD) ONE (18:58)
== END 2022-06-08 19:17 | disposition home or self-care (01) ==
LOC: JER 14:07
DX: O23.11 Infections of bladder in pregnancy, first trimester (principal); N30.01 Acute cystitis with hematuria; Z3A.01 Less than 8 weeks gestation of pregnancy
CPT/HCPCS: 36415; 76817-TC; 80053; 81003; 84702; 84703; 85025; 86850; 86900; 86901; 87086; 99284-25

== ENCOUNTER 2022-10-26 11:13 | Emergency (ER) | payer BC ==
[2022-10-26 11:33] VITALS: BP 128/82; PULSE 90; RESP 18; TEMP 97.9; BMI 33.8
[2022-10-26 12:51] LABS: BASO % 0.9 % (0-2.0); EOS % 3.4 % (0-4.5); HEMATOCRIT 41.4 % (32.4-45.2); HEMOGLOBIN 13.6 GM/dL (10.7-15.3); LYMPH % 23.9 % (8-40); MCH 29.6 pg (25.7-33.7); MCHC 32.8 g/dl (32.0-36.0); MEAN CELL VOLUME 90.4 fl (80-96); MEAN PLT VOLUME 8.5 fl (7.5-11.1); MONO % 6.1 % (3.8-10.2); NEUT % 65.7 % (42.8-82.8); PLATELET COUNT 276 10^3/uL (134-434); RBC 4.58 M/mm3 (3.60-5.2); RDW 13.7 % (11.6-15.6); WHITE BLOOD COUNT 6.4 K/mm3 (4.0-10.0)
[2022-10-26 12:55] LABS: HCG,QUALITATIVE URINE Positive
[2022-10-26 12:58] LABS: EPI CELLS 12 /uL (0-25.1); HYALINE CASTS 0 /uL (0-3.1); URINE APPEARANCE CLEAR; URINE BACTERIA 8 /uL (0-1359); URINE BILIRUBIN NEGATIVE (NEGATIVE); URINE COLOR YELLOW; URINE GLUCOSE (UA) NEGATIVE (NEGATIVE); URINE KETONE NEGATIVE (NEGATIVE); URINE LEUK ESTERASE NEGATIVE (NEGATIVE); URINE NITRITE NEGATIVE (NEGATIVE); URINE PROTEIN 1+ (NEGATIVE); URINE RBC 28739 /uL (0-23.9); URINE UROBILINOGEN 0.2 mg/dL (0.2-1.0); URINE WBC 23 /uL (0-25.8)
[2022-10-26 13:09] LABS: CALCIUM 8.6 mg/dL (8.5-10.1)
[2022-10-26 13:10] LABS: BLOOD UREA NITROGEN 9.7 mg/dL (7-18)
[2022-10-26 13:13] LABS: CREATININE 0.7 mg/dL (0.55-1.3)
== END 2022-10-26 15:35 | disposition home or self-care (01) ==
LOC: JER 11:13
DX: O20.0 Threatened abortion (principal); Z3A.00 Weeks of gestation of pregnancy not specified
CPT/HCPCS: 36415; 76817-TC; 80048; 81003; 84702; 84703; 85025; 86850; 86900; 86901; 87086; 99284-25

== ENCOUNTER 2022-10-29 18:31 | Emergency (ER) | payer SELFPAY ==
[2022-10-29 19:12] VITALS: BP 108/73; PULSE 70; RESP 18; TEMP 98.1; BMI 36.2
== END 2022-10-29 22:40 | disposition home or self-care (01) ==
LOC: JERFT 18:31
DX: O03.9 Complete or unspecified spontaneous abortion without complication (principal)
CPT/HCPCS: 36415; 84702; 99283-25